=== PATIENT | female | born 1995 | race Caucasian/White ===

== ENCOUNTER 2019-08-17 11:17 | Outpatient (CLI) | payer MEDICAID, SELFPAY ==
--- NOTE | 2019-08-17 | US_ITS ---
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 Single intrauterine gestation in Cephalic presentation. Cervix is Closed and normal length. Cervical length is 4.6 cm. Normal amount of amniotic fluid surrounds the fetus. Placenta: Anterior, no previa or abruption. Placenta grade 0 Heart: 138 BPM. Four chambers are identified. Anatomy: Intracranial structures and spine are normal. kidneys, stomach and urinary bladd er are unremarkable. Abdominal wall, three-vessel cord and cord insertion site are normal. 4 extremities are present. profile: Limited due to position of the fetus. Gender: Male. Male. measurements: BPD = 4.9 cm = 20w6d HC = 18.0 cm = 20w3d AC = 14.8 cm = 20w1d FL = 3.3 cm = 20w3d EFW: 344 g., 69th %. Measurements are internally concordant. AGA by ultrasound: 20 weeks 3 days ROSANGELA by ultrasound: 01/01/2020 US/US OB >= 14 weeks fetus [id number] IMPRESSION: 1. Single intrauterine gestation of 20 weeks 3 days with an EDC of 01/01/2020. 2. Unremarkable screening survey of anatomy. profile limited due to position.
== END 2019-08-17 11:18 | disposition home or self-care (01) ==
PROVIDERS: Visit Provider Family Medicine
DX: Z01.89 Encounter for other specified special examinations (principal)

== ENCOUNTER 2019-12-27 19:30 | Inpatient (IN) | payer MEDICAID, SELFPAY ==
[2019-12-27 20:25] LABS: Basophils # 0.1 10^3/uL (0.0-0.1); Basophils % 0.3 %; Eosinophils # 0.1 10^3/uL (0.0-0.8); Eosinophils % 0.9 %; Hematocrit 27.5 % (37.0-47.0); Lymphocytes # 1.6 10^3/uL (0.8-4.8); Lymphocytes % 10.4 %; Mean Corpuscular HGB Conc 29.1 g/dL (30.0-36.0); Mean Corpuscular Hemoglobin 22.4 pg (28.0-34.0); Mean Platelet Volume 11.2 fL (7.4-10.4); Monocytes # 1.1 10^3/uL (0.2-0.9); Monocytes % 7.6 %; Neutrophils # 11.77 10^3/uL (1.8-7.7); Neutrophils % 78.2 %; Nucleated Red Blood Cells % 0 %; Platelet Count 273 10^3/cmm (130-400); Red Blood Count 3.57 10^6/uL (4.1-5.3); Red Cell Distribution Width 14.5 % (12.1-15.1); White Blood Count 15.1 10^3/uL (4.0-10.0)
[2019-12-27 20:41] VITALS: BMI 30.2
[2019-12-27 21:25] VITALS: BP 131/77; PULSE 105
[2019-12-27 21:55] VITALS: BP 124/74; PULSE 101
[2019-12-27] MEDS: miSOPROStol 100 mcg tablet 25 MCG SUBLINGUAL (22:13)
[2019-12-27 23:42] VITALS: RESP 16
[2019-12-27] MEDS: fentaNYL 50 mcg/mL INJ 2mL IVP (23:42)
[2019-12-27] MEDS: ondansetron 2 mg/ML SDV 2 mL 4 MG IVP (23:47)
[2019-12-28] VITALS (39 sets, daily range): BP systolic 0–165; BP diastolic 0–97; PULSE 71–130; RESP 18; TEMP 36.8–36.9; O2SAT 98–100
[2019-12-28] MEDS: lactated ringers 1,000 ML 999 ML IV ×2 (01:13)
--- NOTE | 2019-12-28 01:13 | ANES.PREANE2 ---
Pre-Anesthetic Assessment Pre-Anesthetic Assessment: Height/Weight: Pulse Resp BP Pulse Ox 120 H 16 118/69 100 12/28/19 01:10 12/27/19 23:42 12/28/19 01:10 12/28/19 01:08 Preop Diagnosis: SROM, labor pain Proposed Procedure: Labor Lumbar Epidural Was Beta Jac taken within 24 hours: N/A Last intake: 1800 12/26 Social: Social History: No alcohol and No tobacco Exam: Pre-Anes Outpt Exam: alert, oriented x 3, clear to auscultation bilaterally and regular rate & rhythm Airway: Submandibular: WNL Cervical ROM: WNL MP: 2 Dentition: Full History/ROS: No significant history except as noted and No significant complaints Pulmonary: Pulmonary: Asthma (exercise) CV/HEM: CV/HEM: None reported : : None reported Hepatic: Hepatic: None reported GI: GI: None reported Metabolic: Metabolic: None reported Musc/skel: Musc/skel: None reported Neuropsych: Neuropsych: None reported Anesthetic Plan: ASA status: 2 Anesthesia: General and Regional (specify below) (epidural) Meds/Allergies Current Medications: Current Medications Generic Name Dose Route Start Last Admin Trade Name Freq PRN Reason Stop Dose Admin Fentanyl 25 - 100 mcg 12/27/19 21:37 12/27/19 23:42 Sublimaze IVP 25 mcg Q1H PRN Administration SEVERE PAIN Lactated Ringer's 1,000 mls @ 999 m ls/hr 12/27/19 20:15 12/28/19 00:00 Lactated Ringers IV 999 mls/hr .Q1H1M PRN Administration BLEEDING Ondansetron HCl 4 mg 12/27/19 20:15 12/27/19 23:47 Zofran IVP 4 mg Q4H PRN Administration NAUSEA AND VOMITI NG Data Anesthesia CBC & Chem 7: 12/27/19 19:55 Other Labs: Laboratory Results - last 48 hr 12/27/19 19:55 WBC 15.1 H RBC 3.57 L Hgb 8.0 L Hct 27.5 L MCV 77.0 L MCH 22.4 L MCHC 29.1 L RDW 14.5 Plt Count 273 MPV 11.2 H Neut % (Auto) 78.2 Lymph % (Auto) 10.4 [place] % (Auto) 7.6 Eos % (Auto) 0.9 Baso % (Auto) 0.3 Neut # (Auto) 11.77 H Lymph # (Auto) 1.6 [place] # (Auto) 1.1 H Eos # (Auto) 0.1 Baso # (Auto) 0.1 Nucleated RBC % (auto) 0 Nucleated RBCs # 0.0 Cardiac Studies: No Data to Display Anesthesia Procedures Epidural: Time Out Performed: Yes Consents Signed: Procedure Consent Consent: from patient, risks and benefits reviewed and patient agrees to proceed Lumbar Level: L3-L4 Epidural position: sitting Epidural procedure: sterile prep of area, 1% lidocaine to numb the area (5), 18 g needle, negative for paresthesia passed, neg for paresthesia, test dose given, 1.5% xylocaine 1:200k epi (5), 0.2% Ropivacaine bolus ml (5), placed PCEA (5cc q10min x 3), no systemic response, sterile dressing applied, L.U.D. no apparent complications and 0.2% Ropiavacaine @ mls/hr (12) Additional Comments: Called to OB for epidural placement, pt evaluated and assessed for placement and explained procedure. Labs reviewed. Pt agrees to proceed. placed to 5cm in space and tolerated well. Bolused with epidural pump and VSS throughout per nursing chart. Last BP 127/74 Pain much improved.
[2019-12-28] MEDS: fentaNYL 50 mcg/mL INJ 2mL IVP (01:14)
[2019-12-28] MEDS: oxytocin 30 UNIT/500 ML BAG 600 UNIT IV (03:05)
--- NOTE | 2019-12-28 03:12 | P.PCNOB_ITS ---
Delivery Note: Date of delivery: December 28, 2019 Pre-Delivery Course: The patient is a 24-year-old 2 para 1-0-0-1 with an estimated gestational age of 39 weeks who presented to the hospital with spontaneous rupture membranes. Her spontaneous rupture of membranes occurred about 6 hours prior to delivery. She was given Cytotec 25 mcg x 1 sublingual. She then progressed to complete without difficulty. She is GBS negative. Her glucose screen was negative. Her blood type is O+. Otherwise there are no other abnormal labs. Delivery: DELIVERY: The patient progressed to complete without difficulty. She delivered a male with a weight of 7 pounds 13 ounces with Apgars of 9, 9. The baby was delivered from the BRYANT position. The baby's mouth and nose were suctioned at the site of the perineum. The baby was then completely delivered and placed on the mother's abdomen. The cord was then clamped and cut. There was no nuchal cord. There was no meconium. The placenta and 3 vessel cord were delivered intact shortly thereafter. The perineum and vaginal vault were carefully examined. No lacerations were noted. Both the mother and the baby were in stable condition. A&P Assessment and plan (1) 39 weeks gestation of : The patient is doing very well. I anticipate she will have a routine hospital stay. Status: Acute Coding Level of Care Code Acute Artillery Maintenance Supervisor for Chg Fwd Diagnoses 39 weeks gestation of Z3A.39
[2019-12-28] MEDS: docusate sodium 100 mg Capsule PO ×2 (08:49→21:38)
[2019-12-28] MEDS: prenatal vitamin Capsule 1 CAP PO (08:49)
[2019-12-28 15:22] LABS: Hemoglobin 7.4 g/dL (11.5-15.3); Mean Corpuscular HGB Conc 28.5 g/dL (30.0-36.0); Mean Corpuscular Hemoglobin 22.1 pg (28.0-34.0); Mean Corpuscular Volume 77.6 fL (81-99); Mean Platelet Volume 11.4 fL (7.4-10.4); Platelet Count 276 10^3/cmm (130-400); Red Blood Count 3.35 10^6/uL (4.1-5.3); Red Cell Distribution Width 14.5 % (12.1-15.1); White Blood Count 16.5 10^3/uL (4.0-10.0)
[2019-12-29 04:00] VITALS: BP 108/71; PULSE 71; RESP 16; TEMP 36.6; O2SAT 98
[2019-12-29] MEDS: docusate sodium 100 mg Capsule PO ×2 (10:07→22:31)
[2019-12-29] MEDS: prenatal vitamin Capsule 1 CAP PO (10:07)
[2019-12-29 10:11] VITALS: BP 124/84; PULSE 87; RESP 18; TEMP 36.7; O2SAT 99
--- NOTE | 2019-12-29 10:11 | PM.OBGYPN ---
DIGITAL MARKETING ASSOCIATE Subjective Subjective: Interval history: The patient is doing well. Her bleeding has been within normal limits. They are well controlled. She was breast-feeding well until we elected to have the baby not breast-feed anymore. There have been no concerns. Labor: Station: +1 Amniotic Membrane Status: Ruptured Monitor Mode: External Contraction Pattern: Regular Status: Category l Vitals/I&O/Wt Last Vital Signs Temp 97.8 F 12/29/19 04:00 Pulse 71 12/29/19 04:00 Resp 16 12/29/19 04:00 BP 108/71 12/29/19 04:00 Pulse Ox 98 12/29/19 04:00 12/28/19 12/29/19 12/29/19 22:59 06:59 14:59 Intake Total 100 / 985 Balance 100 / 985 Weight last 48 hrs Weight 187 lb Physical Exam Narrative: EXAM NARRATIVE: The patient is alert. She appears comfortable. Her heart has a regular rate and rhythm with no murmurs appreciated. Lungs are clear to auscultation bilaterally. Her fundus is firm and below the umbilicus. Data : 12/28/19 15:03 A&P Assessment and plan (1) 39 weeks gestation of : Anticipate routine care. The patient will need to continue to stay inpatient because she needs to stay with her baby and we would be unable to get her the medication she needs because of the restrictions placed due to COVID-19. Status: Acute (2) Spontaneous vaginal delivery: Status: Acute Attestations Medical Necessity Statement*: Anticipate the patient will be discharged tomorrow if her baby does well. Coding Level of Care Code Acute Room Service Food Service Attendant for Chg Fwd Diagnoses 39 weeks gestation of Z3A.39 Spontaneous vaginal delivery O80
[2019-12-29 16:00] VITALS: BP 110/71; PULSE 98; RESP 18; TEMP 37.2; O2SAT 99
[2019-12-29 22:00] VITALS: BP 128/85; PULSE 95; RESP 18; TEMP 36.8
[2019-12-30 04:23] VITALS: BP 117/75; PULSE 99; RESP 18; TEMP 36.8
[2019-12-30 06:08] VITALS: BP 108/64; PULSE 73; RESP 18; TEMP 36.5
[2019-12-30 08:00] VITALS: BP 129/81; PULSE 105; RESP 18; TEMP 36.8
[2019-12-30] MEDS: docusate sodium 100 mg Capsule PO (08:31)
[2019-12-30] MEDS: prenatal vitamin Capsule 1 CAP PO (08:31)
--- NOTE | 2019-12-30 10:33 | P.DS_ITS ---
Discharge Providers NEWSPAPER PEDDLER Date of Admission: 12/27/19 19:30 Date of Discharge: 12/30/19 Attending Provider at Admission: Kulwant De Dios MD Attending Provider at Discharge: Kulwant De Dios MD Diagnoses at Discharge Discharge Diagnosis (1) 39 weeks gestation of : Status: Acute (2) Spontaneous vaginal delivery: Status: Acute Reason for Visit Reason for Visit: contractions Hospital Course Hospital Course: The patient presented to the hospital with spontaneous ru pture of membranes. She was placed on Cytotec. She progressed to complete and had an unremarkable spontaneous vaginal delivery. She had no complications during her labor. She did not have a fever. Her white count was mildly elevated at 15.1 and she did have anemia of 8.0. Her course was also unremarkable. Her bleeding was scant. She breast-fed well. She had no complications during her hospital stay. Her infant did have problems with tachypnea. He also had a positive blood culture. So he will be staying in the hospital and she will be rooming in with him for the next 4 to 5 days. Information Peripartum Data: Infant Delivery Method: Vaginal Physical Exam Narrative: EXAM NARRATIVE: The patient is alert. She appears comfortable. Her heart has a regular rate and rhythm with no murmurs appreciated. Lungs are clear to auscultation bilaterally. Her fundus is firm and below the umbilicus. Discharge Data Addt'l Data from Hospital Stay: On the 16th the white blood count was 15.1 with a hemoglobin of 8.0 and a platelet count of 273 On the 17th her white blood count was 16.5 with a hemoglobin of 7.4 and a platelet count of 276 Vitals: Last Vital Signs Temp 98.2 F 12/30/19 08:00 Pulse 105 H 12/30/19 08:00 Resp 18 12/30/19 08:00 BP 129/81 12/30/19 08:00 Pulse Ox 99 12/29/19 16:00 Discharge Plan Discharge Patient Disposition: Home, Self-Care Condition: Stable Prescriptions: New ibuprofen 800 mg Tablet 800 mg PO TID Qty: 30 RF: 0 ferrous sulfate 325 mg (65 mg iron) tablet 325 mg PO DAILY Qty: 90 RF: 0 Continued 28 mg iron- 800 mcg Tablet 1 tab PO DAILY RF: 0 Discharge Orders: Discharge Order (Routine); Ordered 12/30/19 Ordered By: Kulwant De Dios Referrals: Kulwant De Dios MD [Physician] - 6 Weeks Discharge Diet: Usual diet Discharge Activity: Limit activity as instructed Patient Instructions: Your Baby (GEN), Expression, Collection and Storage of Breastmilk (GEN), How to Hold and Breastfeed Your Baby (GEN), and Nipple Soreness (GEN), Breast Fullness Versus Breast Engorgement (GEN), How to Increase Your Milk Supply (GEN), and Your Diet (GEN), OB Discharge Report, OB Food/Drug Interaction Guide, OB Vaginal Deliveries Discharge Attestations NEWSPAPER PEDDLER Time Spent in Discharge Care*: less than 30 min Coding Level of Care Code Acute Locomotive Operator Helper for Chg Fwd Diagnoses 39 weeks gestation of Z3A.39 Spontaneous vaginal delivery O80
[2019-12-30 12:40] VITALS: BP 115/74; PULSE 83; RESP 18; TEMP 36.4
[2019-12-30] MEDS: measles,mumps,rubella pf Vial (w/diluent) 0.5 ML SUBCUT (12:52)
== END 2019-12-30 12:54 | disposition home or self-care (01) | DRG 807 ==
LOC: OPOB 12-28 03:01 → OBGYN 12-28 03:01
PROVIDERS: Admitting Provider Family Medicine; Visit Provider Family Medicine
DX: O42.92 Full-term premature rupture of membranes, unspecified as to length of time between rupture and onset of labor (principal); Z37.0 Single live birth; Z3A.39 39 weeks gestation of pregnancy
CPT/HCPCS: 12345; 36415; 59025; 59409; 83986; 85025; 85027; 90707; 96372; 96375; 98960; 99211; J2405; J2795; J3010

== ENCOUNTER 2022-03-03 22:10 | Emergency (ER) | payer OTHER, MEDICAID, SELFPAY ==
[2022-03-03 22:25] VITALS: BP 128/91; PULSE 109; RESP 18; TEMP 36.8; O2SAT 100; BMI 26.6
[2022-03-04 01:31] LABS: Basophils % 0.2 %; Eosinophils # 0.2 10^3/uL (0.0-0.8); Eosinophils % 1.8 %; Hematocrit 36.1 % (37.0-47.0); Hemoglobin 11.9 g/dL (11.5-15.3); Lymphocytes # 1.6 10^3/uL (0.8-4.8); Lymphocytes % 17.1 %; Mean Corpuscular Hemoglobin 27.5 pg (28.0-34.0); Mean Corpuscular Volume 83.4 fl (81-99); Mean Platelet Volume 11.5 fL (7.4-10.4); Monocytes # 0.6 10^3/uL (0.2-0.9); Monocytes % 5.9 %; Neutrophils % 74.6 %; Nucleated Red Blood Cells % 0 %; Platelet Count 237 10^3/cmm (130-400); Red Blood Count 4.33 10^6/uL (4.1-5.3); Red Cell Distribution Width 16.2 % (12.1-15.1); White Blood Count 9.3 10^3/uL (4.0-10.0)
[2022-03-04 01:33] LABS: Add Urine Microscopic? NO; Charge for UA Resulting for Rev
[2022-03-04] MEDS: ondansetron 2 mg/ML SDV 2 mL 4 MG IVP (01:34)
[2022-03-04] MEDS: lactated ringers 1,000 ML 999 ML IV (01:34)
[2022-03-04 01:59] LABS: Alanine Aminotransferase 15 U/L (0-33); Albumin Level 4.5 g/dL (3.5-5.2); Alkaline Phosphatase 61 U/L (35-105); Anion Gap 14.6 (5-19); Aspartate Amino Transferase 14 U/L (0-32); Calcium 9.6 mg/dL (8.5-10.5); Carbon Dioxide 24 mmol/L (22-29); Chloride 99 mmol/L (98-107); Globulin 2.9 g/dL (1.3-4.6); Glomerular Filtration Rate 119.9 mL/min (90-130); Glucose 98 mg/dL (65-115); Potassium 3.6 mmol/L (3.5-5.1); Total Bilirubin 0.3 mg/dL (0.15-1.2); Total Protein 7.4 g/dL (6.6-8.7)
[2022-03-04 02:09] LABS: Bilirubin Urine Neg (Negative); Blood Urine Neg (Negative); Glucose Urine UA Norm (Normal); Ketones Urine Negative (Negative); Leukocyte Esterase Urine Negative (Negative); Nitrate Urine Negative (Negative); Protein Urine Neg (Negative); Specific Gravity, Urine 1.015 (1.005-1.030); Urine Appearance Clear (CLEAR); Urine Color Yellow (Yellow); Urobilinogen Urine Norm (Negative); pH Urine 7 (5-7)
--- NOTE | 2022-03-04 02:34 | ED_ITS ---
HPI - Nausea/Vomiting/Diarrhea General: Chief complaint: Nausea/Vomiting/Diarrhea Stated complaint: nausea/vomiting blood, back pain 13 wks Time Seen by Provider: 03/04/22 01:20 History of Present Illness: 26-year-old female presents with vomiting. Patient also complains of some mild back pain. Patient reports that she is 13 weeks and is concerned about the baby. Patient reports that she been having difficulty with vomiting throughout her since about 6 weeks. Patient noticed a little bit what she feels with blood in her vomit. Patient wanted to be evaluated to make sure that her baby is okay. Patient is Of any abdominal pain. No reports of fevers, chills, diarrhea. Associated nausea: Yes Associated symtoms: Reports nausea; Denies change in vision, chest pain, dizziness, dysuria, headache(s) or palpitations Review of Systems Const: Denies: fever(s) or chills Eyes: Denies: change in vision or blurry vision ENMT: Denies: throat pain or ear or mastoid pain Card: Denies: chest pain or palpitations Resp: Denies: dyspnea or productive cough GI: Reports: nausea, vomiting and other (Please see HPI); Denies: abdominal pain : Denies: flank pain or dysuria Musc: Denies: neck pain or back pain Skin/Breast: Denies: rash or pruritus Neuro: Denies: headache(s) or dizziness [facility] ED Female Reproductive History: Date of last menstrual period: 12/04/21 Physical Exam Const: COMMON NORMALS: no acute distress, patient oriented x3, healthy appea ring and alert HENMT: COMMON NORMALS: normocephalic and hearing grossly normal bilaterally HEAD & SCALP: normocephalic Eye: COMMON NORMALS: Equal, round and reactive pupils present and EOMs intact bilaterally PUPIL: Yes Equal, round and reactive pupils present Resp: COMMON NORMALS: normal respiratory effort, No use of accessory muscles and clear to auscultation bilaterally AUSCULTATION: clear to auscultation bilaterally Cardio: COMMON NORMALS: regular rhythm RATE: tachycardic RHYTHM: regular rhythm GI: COMMON NORMALS: Soft to palpation and non-tender PALPATION: Yes Soft to palpation Extremity: COMMON NORMALS: normal to inspection and full ROM Neuro: COMMON NORMALS: patient oriented x3, CN's II-XII intact bilaterally, moves all extremities and no focal motor deficits SENSORIUM/ORIENTATION: Yes alert Psych: COMMON NORMALS: mental status grossly normal, Normal thought process present, cooperative and normal affect THOUGHT PROCESS: Normal thought process present Skin: COMMON NORMALS: no rashes or lesions noted GENERAL SKIN EXAM: no rashes or lesions noted Course Vital Signs: Vital signs: Vital Signs Temperature 98.3 F 03/03/22 22:25 Pulse Rate 109 H 03/03/22 22:25 Respiratory Rate 18 03/03/22 22:25 Blood Pressure 128/91 03/03/22 22:25 Pulse Oximetry 100 03/03/22 22:25 Oxygen Delivery Me thod 03/03/22 22:25 MDM - Nausea/Vomiting/Diarrhea Medical Decision Making Patient with no vomiting while in the ER. I suspect she has a lot of irritation of her esophagus and stomach from her hyperemesis gravidarum and probably does have some mild blood-tinged from that. She is not having any significant active vomiting with red blood. Patient was concerned about her baby, I performed a bedside ultrasound which showed good movement heart rate in the 140s. I recommended she start Pepcid. She should follow-up with her OB and primary care provider for further management of her vomiting throughout her . Patient heart rate improved with IV fluid and patient was discharged home Lab Data : 03/04/22 01:12 03/04/22 01:12 Laboratory Results WBC 9.3 10^3/uL (4.0-10.0) 03/04/22 01:12 RBC 4.33 10^6/uL (4.1-5.3) 03/04/22 01:12 Hgb 11.9 g/dL (11.5-15.3) 03/04/22 01:12 Hct 36.1 % (37.0-47.0) L 03/04/22 01:12 MCV 83.4 fl (81-99) 03/04/22 01:12 MCH 27.5 pg (28.0-34.0) L 03/04/22 01:12 MCHC 33.0 g/dL (30.0-36.0) 03/04/22 01:12 RDW 16.2 % (12.1-15.1) H 03/04/22 01:12 Plt Count 237 10^3/cmm (130-400) 03/04/22 01:12 MPV 11.5 fL (7.4-10.4) H 03/04/22 01:12 Neut % (Auto) 74.6 % 03/04/22 01:12 Lymph % (Auto) 17.1 % 03/04/22 01:12 [place] % (Auto) 5.9 % 03/04/22 01:12 Eos % (Auto) 1.8 % 03/04/22 01:12 Baso % (Auto) 0.2 % 03/04/22 01:12 Neut # (Auto) 6.90 10^3/uL (1.8-7.7) 03/04/22 01:12 Lymph # (Auto) 1.6 10^3/uL (0.8-4.8) 03/04/22 01:12 [place] # (Auto) 0.6 10^3/uL (0.2-0.9) 03/04/22 01:12 Eos # (Auto) 0.2 10^3/uL (0.0-0.8) 03/04/22 01:12 Baso # (Auto) 0.0 10^3/uL (0.0-0.1) 03/04/22 01:12 Nucleated RBC % (auto) 0 % 03/04/22 01:12 Nucleated RBCs # 0.0 /100WBC 03/04/22 01:12 Potassium 3.6 mmol/L (3.5-5.1) 03/04/22 01:12 Chloride 99 mmol/L (98-107) 03/04/22 01:12 Carbon Dioxide 24 mmol/L (22-29) 03/04/22 01:12 Anion Gap 14.6 (5-19) 03/04/22 01:12 Creatinine 0.6 mg/dL (0.5-0.9) 03/04/22 01:12 GFR Calculation 119.9 mL/min (90-130) 03/04/22 01:12 Glucose 98 mg/dL (65-115) 03/04/22 01:12 Calcium 9.6 mg/dL (8.5-10.5) 03/04/22 01:12 Total Bilirubin 0.3 mg/dL (0.15-1.2) 03/04/22 01:12 AST 14 U/L (0-32) 03/04/22 01:12 ALT 15 U/L (0-33) 03/04/22 01:12 Alkaline Phosphatase 61 U/L (35-105) 03/04/22 01:12 Total Protein 7.4 g/dL (6.6-8.7) 03/04/22 01:12 Albumin 4.5 g/dL (3.5-5.2) 03/04/22 01:12 Globulin 2.9 g/dL (1.3-4.6) 03/04/22 01:12 Urine Color Yellow (Yellow) 03/04/22 01:12 Urine Appearance Clear (CLEAR) 03/04/22 01:12 Urine pH 7 (5-7) 03/04/22 01:12 Ur Specific [place] 1.015 (1.005-1.030) 03/04/22 01:12 Urine Protein Neg (Negative) 03/04/22 01:12 Urine Glucose (UA) Norm (Normal) 03/04/22 01:12 Urine Ketones Negative (Negative) 03/04/22 01:12 Urine Blood Neg (Negative) 03/04/22 01:12 Urine Nitrate Negative (Negative) 03/04/22 01:12 Urine Bilirubin Neg (Negative) 03/04/22 01:12 Urine Urobilinogen Norm mg/dL (Negative) 03/04/22 01:12 Ur Leukocyte Esterase Negative (Negative) 03/04/22 01:12 Discharge Plan Discharge Condition: Stable Prescriptions: No Action 28 mg iron- 800 mcg Tablet 1 tab PO DAILY ibuprofen 800 mg Tablet 800 mg PO TID Qty: 30 0RF ferrous sulfate 325 mg (65 mg iron) tablet 325 mg PO DAILY Qty: 90 0RF Coding Level of Care Code ED Marketing Pr Intern for Chg Earline
[2022-03-04] MEDS: famotidine 20 mg/2 mL INJ IVP (02:35)
[2022-03-04 02:53] VITALS: BP 128/91; PULSE 109; RESP 18; TEMP 36.8; O2SAT 100
[2022-03-04 03:16] LABS: Blood Urea Nitrogen 4 mg/dL (6-20); Osmolality Calculated 275 mOsm/kg (285-295); Sodium 134 mmol/L (136-145)
== END 2022-03-04 02:50 | disposition home or self-care (01) ==
PROVIDERS: Emergency Provider Student in an Organized Health Care Education/Training Program
DX: O26.891 Other specified pregnancy related conditions, first trimester (principal); K92.0 Hematemesis; Z3A.13 13 weeks gestation of pregnancy
CPT/HCPCS: 80053; 81003; 85025; 96361; 96374; 96375; 99284; J2405; J3490

== ENCOUNTER 2022-09-01 09:33 | Outpatient (CLI) | payer OTHER, MEDICAID, SELFPAY ==
[2022-09-01 09:40] VITALS: BMI 28.7
[2022-09-01 09:46] VITALS: BP 120/88; PULSE 98
[2022-09-01 10:04] VITALS: BP 116/80; PULSE 84
[2022-09-01 10:28] VITALS: BP 116/80; PULSE 84; RESP 18; TEMP 36.2
== END 2022-09-01 10:30 | disposition home or self-care (01) ==
LOC: OPOB 09:34 → OBGYN 09:45
PROVIDERS: Visit Provider Family Medicine
DX: O26.899 Other specified pregnancy related conditions, unspecified trimester (principal); Z3A.00 Weeks of gestation of pregnancy not specified; R10.9 Unspecified abdominal pain; N89.8 Other specified noninflammatory disorders of vagina
CPT/HCPCS: 59025; 99211

== ENCOUNTER 2022-09-06 17:00 | Inpatient (IN) | payer OTHER, MEDICAID, SELFPAY ==
[2022-09-06] VITALS (45 sets, daily range): BP systolic 117–156; BP diastolic 60–113; PULSE 71–153; RESP 18; TEMP 36.6–37.2; O2SAT 98–100; BMI 28.7
[2022-09-06 16:55] LABS: Basophils % 0.3 %; Eosinophils # 0.1 10^3/uL (0.0-0.8); Hematocrit 34.1 % (37.0-47.0); Lymphocytes # 1.9 10^3/uL (0.8-4.8); Lymphocytes % 13.7 %; Mean Corpuscular HGB Conc 32.3 g/dL (30.0-36.0); Mean Corpuscular Hemoglobin 26.1 pg (28.0-34.0); Monocytes % 7.2 %; Neutrophils # 10.46 10^3/uL (1.8-7.7); Neutrophils % 76.8 %; Nucleated Red Blood Cells % 0 %; Platelet Count 275 10^3/cmm (130-400); Red Blood Count 4.21 10^6/uL (4.1-5.3); Red Cell Distribution Width 16.2 % (12.1-15.1); White Blood Count 13.6 10^3/uL (4.0-10.0)
[2022-09-06] MEDS: miSOPROStol 100 mcg tablet 25 MCG VAGINAL (17:14)
[2022-09-06] MEDS: lactated ringers 1,000 ML 999 ML IV ×2 (18:48→20:02)
--- NOTE | 2022-09-06 19:58 | ANES.PREANE2 ---
Documented by User: Consuelo Carter CRNA 09/06/22 20:01 Pre-Anesthetic Assessment Height/Weight: Height 1.68 m Weight 80.739 kg Temp Pulse BP O2 Del Method 97.9 F 89 134/81 09/06/22 16:45 09/06/22 18:37 09/06/22 18:37 09/06/22 16:30 Preop Diagnosis: SROM, labor pain LUIS ALFREDO Familial anesthetic complications: None Was Beta Jac taken within 24 hours: N/A Was Clonidine taken within 24 hours: N/A Social No alcohol and No tobacco Exam alert, oriented x 3, clear to auscultation bilaterally and regular rate & rhythm Medications/Allergies Home Medications Medication Instructions Recorded Confirmed Last Taken Type ferrous sulfate 325 mg (65 mg 325 mg PO DAILY #90 tabs 12/30/19 09/05/22 20:00 Rx iron) tablet ibuprofen 800 mg tablet 800 mg PO TID #30 tabs 12/30/19 Unknown Rx vit no.95-ferrous 1 tab PO DAILY 12/30/19 12/30/19 09/05/22 20:00 History fumarate 28 mg-folic acid 800 mcg tablet () Allergies Allergy/AdvReac Type Severity Reaction Status Date / Time Penicillins Allergy Unknown Unknown Verified 12/30/19 08:28 Current Medications Generic Name Dose Route Start Last Admin Trade Name Freq PRN Reason Stop Dose Admin Lactated Ringer's 1,000 mls @ 999 mls/hr 09/06/22 18:38 09/06/22 18:48 Lactated Ringers IV 999 mls/hr .Q1H1M PRN Administration See label comments Misoprostol 25 mcg 09/06/22 16:45 09/06/22 17:14 Misoprostol 100 Mcg Tablet VAGINAL 09/06/22 20:46 25 mcg Q4H MOE Administration PFSH Anesthesia Female Reproductive History : 4 Data Anesthesia 09/06/22 14:40 Short CBC 09/06/22 Range/Units 14:40 WBC 13.6 H (4.0-10.0) 10^3/uL Hgb 11.0 L (11.5-15.3) g/dL Hct 34.1 L (37.0-47.0) % MCV 81.0 (81-99) fl Plt Count 275 (130-400) 10^3/cmm Neut % (Auto) 76.8 % Neut # (Auto) 10.46 H (1.8-7.7) 10^3/uL Cardiac Studies: No Data to Display Documented by User: Zulema Mcclain 09/06/22 20:35 Pre-Anesthetic Assessment Airway Submandibular: within normal limits Cervical ROM: within normal limits Mallampati: Class II Dentition: full History/ROS No significant history except as noted Pulmonary None reported CV/HEM Anemia None reported Hepatic None reported GI Gastroesophageal Reflux Disease nausea Metabolic None reported Musc/skel None reported Neuropsych None reported Anesthetic Plan ASA status: 2 Anesthesia: Anesthesia Evaluation and MAC Risk of > 500 ml blood loss (7ml/kg in children): No Medications/Allergies Home Medications Medication Instructions Recorded Confirmed Last Taken Type ferrous sulfate 325 mg (65 mg 325 mg PO DAILY #90 tabs 12/30/19 09/05/22 20:00 Rx iron) tablet ibuprofen 800 mg tablet 800 mg PO TID #30 tabs 12/30/19 Unknown Rx vit no.95-ferrous 1 tab PO DAILY 12/30/19 12/30/19 09/05/22 20:00 History fumarate 28 mg-folic acid 800 mcg tablet () Allergies Allergy/AdvReac Type Severity Reaction Status Date / Time Penicillins Allergy Unknown Unknown Verified 12/30/19 08:28 Data Anesthesia 09/06/22 14:40 Cardiac Studies: No Data to Display Anesthesia Procedures Epidural Time Out Performed: Yes Consents Signed: Procedure Consent Consent: requested by attending/covering physician, from patient, risks and benefits reviewed and patient agrees to proceed Lumbar Level: L4-L5 Epidural position: sitting Epidural procedure: sterile prep of area, 1% lidocaine to numb the area, 18 g needle, negative for paresthesia passed, test dose given, 1.5% xylocaine 1:200k epi, placed PCEA (13 ml/hr), no systemic response, sterile dressing applied and L.U.D. no apparent complications
[2022-09-06] MEDS: oxytocin 30 UNIT/500 ML BAG 600 UNIT IV (21:37)
--- NOTE | 2022-09-06 21:50 | PM.OPHPUD ---
Labor & Delivery H&P Update Date of Procedure: September 06, 2022 Date H&P Performed: 09/06/22 Changes to previous documentation: No changes. The patient was seen in my office earlier today Admission Diagnosis: 26-year-old 4 para 2-0-1-2 at 39 weeks and 3 days presenting for induction Primary indication for procedure: Elective. Social circumstances Planned procedure: Induction at 39-week multigravida female Other information: The patient is an otherwise healthy 39-week female who presented to the hospital for induction. She was having some contractions but was not feeling them upon arrival to the hospital. She was placed on Cytotec 25 mcg per vagina x1. An amniotomy was performed. Her had been unremarkable from a medical standpoint. Her labs were as follows. Her blood type is O+. Her antibody screen is negative. She passed her 1 hour glucose screen. She is GBS negative. She is rubella immune. The remainder of her infectious disease profile was within normal limits. Her has been notable for being left by her during her third trimester. Related Problem List Diagnoses (1) 39 weeks gestation of : A&P Assessment and plan (1) 39 weeks gestation of : I anticipate routine labor and spontaneous vaginal delivery. Status: Resolved
--- NOTE | 2022-09-06 21:54 | P.PCNOB_ITS ---
Delivery Note: Date of delivery: September 06, 2022 Pre-delivery diagnoses: 26-year-old 4 para 2-0-1-2 at 39 weeks estimated gestational age Post- delivery diagnoses: Status post spontaneous vaginal delivery Procedure: Spontaneous vaginal delivery Delivering Physician: Kulwant De Dios Estimated blood loss (mL): 100 Pre-Delivery Course: The patient presented to the hospital having contractions every 2 to 3 minutes. Her labor was augmented with Cytotec. An amniotomy was performed. An epidural was placed. She progressed to complete without difficulty. Delivery: DELIVERY: The patient progressed to complete without difficulty. She delivered a male with a weight of 7 pounds 15 ounces with Apgars of 8, 9. The baby was delivered from the BRYANT position and placed on the mother's abdomen. The cord was then clamped and cut 1 minute after delivery. There was no nuchal cord. The cord was shorter than average. There was no meconium. The placenta and 3 vessel cord were delivered intact shortly thereafter. The perineum and vaginal vault were carefully examined. No lacerations were noted. Both the mother and the baby were in stable condition. Post-Delivery Status: Good Coding Level of Care Code Acute Code for Chg Fwd
[2022-09-07] VITALS (10 sets, daily range): BP systolic 102–127; BP diastolic 58–72; PULSE 69–88; RESP 16–18; TEMP 36.6–36.7; O2SAT 98–99
[2022-09-07] MEDS: benzocaine-menthol 78 gm Canister 1 SPRAY TOPICAL (00:59)
[2022-09-07] MEDS: HYDROcodone-acetaminophen 5-325 mg Tablet PO ×2 (00:59→06:08)
[2022-09-07] MEDS: lanolin oint 7 gm 1 APPLIC TOPICAL (00:59)
--- NOTE | 2022-09-07 07:35 | ANE.PACU2 ---
Inpatient post-anesthesia follow up: Airway intact: Yes Vital signs: Temperature 98.0 F Pulse Rate 73 Respiratory Rate 18 Blood Pressure 111/63 Pulse Oximetry 98 Oxygen Delivery Me thod Room Air Oxygen Flow Rate Fraction of Inspir ed Oxygen Hydration adequate: Yes Nausea and vomiting: No Pain level: 2 Mental status: Baseline
[2022-09-07] MEDS: docusate sodium 100 mg Capsule PO ×2 (08:49→17:40)
[2022-09-07] MEDS: ibuprofen 800 mg tablet PO ×3 (08:49→22:11)
[2022-09-07] MEDS: prenatal vitamin Capsule 1 CAP PO (08:50)
[2022-09-07 10:07] LABS: Hematocrit 30.7 % (37.0-47.0); Hemoglobin 9.7 g/dL (11.5-15.3); Mean Corpuscular HGB Conc 31.6 g/dL (30.0-36.0); Mean Corpuscular Hemoglobin 25.8 pg (28.0-34.0); Mean Corpuscular Volume 81.6 fl (81-99); Mean Platelet Volume 11.4 fL (7.4-10.4); Platelet Count 246 10^3/cmm (130-400); Red Blood Count 3.76 10^6/uL (4.1-5.3); Red Cell Distribution Width 16.1 % (12.1-15.1); White Blood Count 14.3 10^3/uL (4.0-10.0)
--- NOTE | 2022-09-07 17:10 | P.DS_ITS ---
Discharge Providers TECHNICAL REPORT WRITER Date of Admission: 09/06/22 17:00 Date of Discharge: 09/07/22 Attending Provider at Admission: Kulwant De Dios MD Attending Provider at Discharge: Kulwant De Dios MD Diagnoses at Discharge Discharge Diagnosis (1) 39 weeks gestation of : Status: Resolved Reason for Visit Reason for Visit: induction Hospital Course Hospital Course The patient presented to the hospital having contractions every 5 minutes. Cytotec 25 mcg was used to augment her labor. Amniotomy was performed. An epidural was placed. She progressed to complete without difficulty. Her delivery was unremarkable. Her course was also unremarkable. Her bleeding was within normal limits. Her pain was well controlled. She breast- fed well. There were no concerns. Information Peripartum Data: Infant Delivery Method: Vaginal Physical Exam Narrative: The patient is alert. She appears comfortable. Her heart has a regular rate and rhythm with no murmurs appreciated. Lungs are clear to auscultation bilaterally. Her fundus is firm and below the umbilicus. Urinary Catheter Management: [place]: Cath Placed During This Visit: yes, but has since been removed by the nurse Reason for Continuing Indwelling Catheter: Decision to DC Catheter Urinary Catheter Date of Insertion: 09/06/22 Urinary Catheter Time of Insertion: 20:55 Date Urinary Catheter Removed: 09/06/22 Time Urinary Catheter Discontinued: 21:30 Discharge Data Studies Completed and Pending Laboratory Results WBC 14.3 10^3/uL (4.0-10.0) H 09/07/22 09:40 RBC 3.76 10^6/uL (4.1-5.3) L 09/07/22 09:40 Hgb 9.7 g/dL (11.5-15.3) L 09/07/22 09:40 Hct 30.7 % (37.0-47.0) L 09/07/22 09:40 MCV 81.6 fl (81-99) 09/07/22 09:40 MCH 25.8 pg (28.0-34.0) L 09/07/22 09:40 MCHC 31.6 g/dL (30.0-36.0) 09/07/22 09:40 RDW 16.1 % (12.1-15.1) H 09/07/22 09:40 Plt Count 246 10^3/cmm (130-400) 03/28/23 09:40 MPV 11.4 fL (7.4-10.4) H 09/07/22 09:40 Neut % (Auto) 76.8 % 09/06/22 14:40 Lymph % (Auto) 13.7 % 09/06/22 14:40 [place] % (Auto) 7.2 % 09/06/22 14:40 Eos % (Auto) 1.0 % 09/06/22 14:40 Baso % (Auto) 0.3 % 09/06/22 14:40 Neut # (Auto) 10.46 10^3/uL (1.8-7.7) H 09/06/22 14:40 Lymph # (Auto) 1.9 10^3/uL (0.8-4.8) 09/06/22 14:40 [place] # (Auto) 1.0 10^3/uL (0.2-0.9) H 09/06/22 14:40 Eos # (Auto) 0.1 10^3/uL (0.0-0.8) 09/06/22 14:40 Baso # (Auto) 0.0 10^3/uL (0.0-0.1) 09/06/22 14:40 Nucleated RBC % (auto) 0 % 09/06/22 14:40 Nucleated RBCs # 0.0 /100WBC 09/06/22 14:40 Vitals Last Vital Signs Temp 98.1 F 09/07/22 15:58 Pulse 70 09/07/22 15:58 Resp 16 09/07/22 15:58 BP 116/64 09/07/22 15:58 Pulse Ox 99 09/07/22 15:58 O2 Del Method 09/07/22 15:58 Discharge Plan Discharge Patient Disposition: Home Condition: Stable Prescriptions: New ibuprofen 800 mg Tablet 800 mg PO TID Qty: 45 0RF Continued PNV cmb#[id number]-ferrous fumarate-FA [] 28 mg iron- 800 mcg Tablet 1 tab PO DAILY ferrous sulfate 325 mg (65 mg iron) tablet 325 mg PO DAILY Qty: 90 0RF Discontinued ibuprofen 800 mg Tablet 800 mg PO TID Qty: 30 0RF Discharge Orders: Discharge Order (Routine); Ordered 09/07/22 Ordered By: Kulwant De Dios Referrals: Kulwant De Dios MD [Physician] - 6 Weeks Discharge Diet: Usual diet Discharge Activity: Limit activity as instructed Patient Instructions: Depression (DC), Opioid Safety (DC), Preeclampsia and Eclampsia After Delivery (GEN), Hemorrhage (DC), OB Discharge Report, OB Food/Drug Interaction Guide, OB Care at Home, Opioid Safety, Abnormal Bleeding Discharge Attestations TECHNICAL REPORT WRITER Time Spent in Discharge Care*: less than 30 min Coding Level of Care Code Acute Code for Chg Fwd Diagnoses 39 weeks gestation of Z3A.39
== END 2022-09-07 22:15 | disposition home or self-care (01) | DRG 807 ==
LOC: OPOB 18:24 → OBGYN 23:11
PROVIDERS: Admitting Provider Family Medicine; Visit Provider Family Medicine
DX: O80 Encounter for full-term uncomplicated delivery (principal); Z37.0 Single live birth; Z3A.39 39 weeks gestation of pregnancy
CPT/HCPCS: 12345; 36415; 51702; 59025; 59409; 85025; 85027; 99211; J2590; J2795; J7120

== ENCOUNTER 2023-05-12 09:38 | Outpatient (CLI) | payer MEDICAID, SELFPAY ==
--- NOTE | 2023-05-12 | US_ITS ---
WS: [id number] EARLY OBSTETRICAL ULTRASOUND (<14 WEEKS). HISTORY: UNSPECIFIED ABDOMINAL PAIN COMPARISON: None available. Transvaginal imaging is submitted. There is thickening of the endometrium. There is a small amount of fluid along the endometrial canal. Cannot confirm gestational sac at this time. There is no po le. No cardiac activity. LEFT ovary measures 3.3 x 3.1 x 2.3 cm. Small follicle associated with the LEFT ovary measures 2.4 x 1.4 cm. This may be a corpus luteum cyst. No additional mass within the LEFT adnexa. RIGHT ovary measures 1.7 x 2.7 x 1.0 cm. Small follicles. No adnexal mass. There is a small amount of free fluid in the cul-de-sac. IMPRESSION: 1. Cannot confirm intrauterine gestation. There is a tiny amount of fluid along the endometrium whic h does not appear to represent a gestational sac at this time. There is no pole or cardiac acti vity. Recommend transvaginal pelvic ultrasound evaluation in 1 week. 2. No extraovarian adnexal masses or suspicion for ectopic. There is a corpus luteum cyst within the LEFT ovary. Intraovarian ectopic pregnancies are unusual. 3. Recommend continued serial follow-up for beta-hCG levels and ultrasound evaluations to confirm vi able intrauterine gestation. Cannot exclude ectopic by imaging as intrauterine gestation is not identified.
== END 2023-05-12 09:39 | disposition home or self-care (01) ==
PROVIDERS: Visit Provider Family Medicine
DX: R10.9 Unspecified abdominal pain (principal); N83.12 Corpus luteum cyst of left ovary

== ENCOUNTER 2023-11-18 08:13 | Oncology outpatient (recurring) (ONCR) | payer MEDICAID, SELFPAY ==
[2023-11-18 08:46] VITALS: BP 111/73; PULSE 83; RESP 16; TEMP 36.5; O2SAT 100
[2023-11-18] MEDS: iron sucrose 500 MG in sodium chloride 0.9% 250 ML 78 MG IV (09:06)
[2023-11-18] MEDS: diphenhydrAMINE 50 mg/mL SDV 1mL 25 MG IVP (12:10)
--- NOTE | 2023-11-18 13:36 | PC.NURSE ---
Pt in infusion room for venofer 500mg infusion. Pt received full dose, completed at approx. 1200. Pt notified nurse that her left arm (with IV) was tingling. Pt then stated her ribs were starting to hurt. NS fluids started. Pt then stated her legs were starting to tingle and and left arm had significant swelling. Benadryl 25mg IVP administered per protocol at approx. 1210. Fluids stopped due to pt complaining of feeling the IV fluids in her hand. Pt then began to vomit. Rapid called at approx 1230 and was taken to ED for evaluation. 22g IV left in pts left AC. Purse was sent with pt, phone was sent with Domingo from security immediately after pt went to ED.
--- NOTE | 2023-12-01 10:50 | PC.NURSE ---
Called [facility] office for further orders on pts venofer infusions. Pt had previous reaction to 500mg venofer. [facility] states pt needs to come in for lab work on tuesday and they will call pt and notify. Pt will not receive next iron infusion. DEBRA
== END 2023-12-11 23:59 | disposition home or self-care (01) ==
PROVIDERS: Visit Provider Family Medicine
DX: D50.9 Iron deficiency anemia, unspecified (principal)
CPT/HCPCS: 96365; 96366; 96375; J1200; J1756; J7050

== ENCOUNTER 2023-11-18 12:44 | Emergency (ER) | payer MEDICAID, SELFPAY ==
[2023-11-18 12:44] VITALS: BP 120/93; PULSE 93; RESP 17; TEMP 36.4; O2SAT 100
--- NOTE | 2023-11-18 12:49 | ECG_ITS ---
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 Measurements Intervals [place] Rate: 82 P: 66 IN: 120 QRS: 55 QRSD: 79 T: 62 QT: 377 QTc: 442 Interpretive Statements SINUS RHYTHM POSSIBLE RIGHT VENTRICULAR CONDUCTION DELAY [RSR (QR) IN V1/V2] No previous ECG available for comparison Electronically Signed On 11-18-2023 13:03:13 CDT by Aldo Roberto M.D. [email or web address]
--- NOTE | 2023-11-18 12:55 | ED_ITS ---
HPI - Nausea/Vomiting/Diarrhea 2 General: Chief complaint: Nausea/Vomiting/Diarrhea Stated complaint: rapid oncology Time Seen by Provider: 11/18/23 12:46 Source: patient Mode of arrival: ambulatory Limitations: no limitations History of Present Illness: 28-year-old female is [facility] she was receiving a iron infusion and had a reaction to it states she had swelling in the hand on the same side started feel lightheaded felt like she is going to pass out and vomited. She is given Benadryl over there she is an IV bolus started. This is her first time have an iron transfusion. She denies any shortness of breath. Associated nausea: Yes Associated symtoms: Reports nausea; Denies chest pain, dysuria or headache(s) Review of Systems 2 Const: Denies: fever(s), chills, body aches or change in appetite ENMT: Denies: throat pain or dental pain Card: Denies: chest pain Resp: Denies: dyspnea GI: Reports: nausea and vomiting; Denies: abdominal pain or diarrhea : Denies: dysuria Musc: Denies: neck pain or back pain Skin/Breast: Denies: rash Neuro: Denies: headache(s) Physical Exam 2 Const: COMMON NORMALS: no acute distress, patient oriented x3 and healthy appearing HENMT: COMMON NORMALS: normocephalic and atraumatic HEAD & SCALP: n ormocephalic and atraumatic Eye: COMMON NORMALS: Equal, round and reactive pupils present and EOMs intact bilaterally PUPIL: Yes Equal, round and reactive pupils present Neck/C-Spine: COMMON NORMALS: full ROM and supple Chest: COMMONS NORMALS: normal inspection of the chest and normal palpation of entire chest wall Resp: COMMON NORMALS: normal respiratory effort, No retractions, No use of accessory muscles and clear to auscultation bilaterally AUSCULTATION: clear to auscultation bilaterally Cardio: COMMON NORMALS: regular rate, regular rhythm and No murmurs present (Cardio) RATE: regular rate RHYTHM: regular rhythm GI: COMMON NORMALS: Normal to inspection, nondistended, normoactive bowel sounds present, Soft to palpation, non-tender and no masses PALPATION: Yes Soft to palpation Extremity: COMMON NORMALS: normal to inspection and full ROM Neuro: COMMON NORMALS: patient oriented x3, moves all extremities and no focal motor deficits Psych: COMMON NORMALS: mental status grossly normal, Normal thought process present and cooperative THOUGHT PROCESS: Normal thought process present Skin: COMMON NORMALS: no rashes or lesions noted and no wounds GENERAL SKIN EXAM: no rashes or lesions noted Course 2 Vital Signs: Vital signs: Vital Signs Temperature 97.5 F L 11/18/23 12:44 Pulse Rate 80 11/18/23 13:30 Respiratory Rate 15 11/18/23 13:30 Blood Pressure 139/94 11/18/23 13:30 Pulse Oximetry 99 11/18/23 13:30 Oxygen Delivery Me thod Room Air 11/18/23 13:30 MDM - Nausea/Vomiting/Diarrhea Medical Decision Making Patient presents here with likely adverse reaction to iron infusion she is feeling improved here she does have some joint swelling she is no signs of rhabdo feel she is stable for discharge informed if she has any worsening symptoms she is to return she understands agrees to plan Medical Records I reviewed the patient's medical records. Lab Data I reviewed the patient's lab results. 11/18/23 13:14 11/18/23 13:14 Laboratory Results WBC 4.77 10^3/uL (3.29-11.43) 11/18/23 13:14 RBC 5.28 10^6/uL (3.85-5.65) 11/18/23 13:14 Hgb 10.00 g/dL (11.27-16.99) L 11/18/23 13:14 Hct 36.7 % (36-47) 11/18/23 13:14 MCV 69.5 fl (85-98) L 11/18/23 13:14 MCH 18.9 pg (27-33) L 11/18/23 13:14 MCHC 27.2 g/dL (30-55) L 11/18/23 13:14 RDW 19.9 % (12.1-15.1) H 11/18/23 13:14 Plt Count 561 10^3/cmm (157-399) H 11/18/23 13:14 MPV TNP 11/18/23 13:14 Neut % (Auto) 59.8 % 11/18/23 13:14 Lymph % (Auto) 31.2 % 11/18/23 13:14 [place] % (Auto) 6.1 % 11/18/23 13:14 Eos % (Auto) 1.9 % 11/18/23 13:14 Baso % (Auto) 0.6 % 11/18/23 13:14 Neut # (Auto) 2.85 10^3/uL (1.8-7.7) 11/18/23 13:14 Lymph # (Auto) 1.5 10^3/uL (0.8-4.8) 11/18/23 13:14 [place] # (Auto) 0.3 10^3/uL (0.2-0.9) 11/18/23 13:14 Eos # (Auto) 0.1 10^3/uL (0.0-0.8) 11/18/23 13:14 Baso # (Auto) 0.0 10^3/uL (0.0-0.1) 11/18/23 13:14 Nucleated RBC % (auto) 0 % 11/18/23 13:14 Nucleated RBCs # 0.0 /100WBC 11/18/23 13:14 Sodium 138 mmol/L (136-145) 11/18/23 13:14 Potassium 3.7 mmol/L (3.5-5.1) 11/18/23 13:14 Chloride 104 mmol/L (98-107) 11/18/23 13:14 Carbon Dioxide 21 mmol/L (22-29) L 11/18/23 13:14 Anion Gap 16.7 (5-19) 11/18/23 13:14 BUN 8 mg/dL (6-20) 11/18/23 13:14 Creatinine 0.7 mg/dL (0.5-0.9) 11/18/23 13:14 GFR Calculation 98.9 mL/min (90-130) 11/18/23 13:14 Glucose 111 mg/dL (65-115) 11/18/23 13:14 Calculated Osmolality 285 mOsm/kg (285-295) 11/18/23 13:14 Calcium 8.8 mg/dL (8.5-10.5) 11/18/23 13:14 Total Bilirubin 0.3 mg/dL (0.15-1.2) 11/18/23 13:14 AST 14 U/L (0-32) 11/18/23 13:14 ALT 13 U/L (0-33) 11/18/23 13:14 Alkaline Phosphatase 65 U/L (35-105) 11/18/23 13:14 Creatine Kinase 45 U/L (26-192) 11/18/23 13:14 Total Protein 7.4 g/dL (6.6-8.7) 11/18/23 13:14 Albumin 4.7 g/dL (3.5-5.2) 11/18/23 13:14 Globulin 2.7 g/dL (1.3-4.6) 11/18/23 13:14 HCG, Qual Negative (Negative) 11/18/23 13:14 No radiology studies performed this visit EKG Data EKG 1: I personally reviewed and interpreted this EKG as follows: EKG interpretation date: 11/18/23 EKG interpretation time: 12:49 Interpretation: nsr hr [address] or t wave abnormalities qrs 79 qtc 416 Discharge Plan Discharge Patient Disposition: Home Clinical Impression: Medication reaction Condition: Stable Prescriptions: New ondansetron 4 mg tablet,disintegrating 4 mg PO Q6H PRN (Reason: nausea and vomiting) Qty: 14 0RF Naprosyn 500 mg tablet 500 mg PO BID PRN (Reason: pain) Qty: 20 0RF No Action ferrous sulfate 325 mg (65 mg iron) tablet 325 mg PO DAILY Qty: 90 0RF fluoxetine 10 mg tablet 10 mg PO DAILY Vitamin C 500 mg Tablet 500 mg PO DAILY Discharge Orders: Discharge ED (Routine); Ordered 11/18/23 Ordered By: Darrell Nash Discharge Diet: Advance as tolerated Discharge Activity: Resume usual activity Patient Instructions: General Allergic Reaction (ED) Coding Level of Care Code 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
[2023-11-18] MEDS: ondansetron 2 mg/ML SDV 2 mL 4 MG IVP (13:08)
[2023-11-18] MEDS: sodium chloride 0.9% 1,000 ML 999 ML IV (13:08)
[2023-11-18 13:10] VITALS: BP 123/79; PULSE 80; RESP 15; O2SAT 100
[2023-11-18 13:23] LABS: Basophils % 0.6 %; Eosinophils # 0.1 10^3/uL (0.0-0.8); Eosinophils % 1.9 %; Hematocrit 36.7 % (36-47); Lymphocytes # 1.5 10^3/uL (0.8-4.8); Lymphocytes % 31.2 %; Mean Corpuscular HGB Conc 27.2 g/dL (30-55); Mean Corpuscular Hemoglobin 18.9 pg (27-33); Mean Corpuscular Volume 69.5 fl (85-98); Monocytes # 0.3 10^3/uL (0.2-0.9); Monocytes % 6.1 %; Neutrophils # 2.85 10^3/uL (1.8-7.7); Neutrophils % 59.8 %; Nucleated Red Blood Cells % 0 %; Platelet Count 561 10^3/cmm (157-399); Red Blood Count 5.28 10^6/uL (3.85-5.65); Red Cell Distribution Width 19.9 % (12.1-15.1); White Blood Count 4.77 10^3/uL (3.29-11.43)
[2023-11-18 13:30] VITALS: BP 139/94; PULSE 80; RESP 15; O2SAT 99
[2023-11-18 13:38] LABS: HCG, Serum Qual Negative (Negative)
[2023-11-18 13:40] LABS: Alanine Aminotransferase 13 U/L (0-33); Albumin Level 4.7 g/dL (3.5-5.2); Alkaline Phosphatase 65 U/L (35-105); Anion Gap 16.7 (5-19); Aspartate Amino Transferase 14 U/L (0-32); Blood Urea Nitrogen 8 mg/dL (6-20); Calcium 8.8 mg/dL (8.5-10.5); Carbon Dioxide 21 mmol/L (22-29); Chloride 104 mmol/L (98-107); Creatinine Clr Calc Pharmacy 110.7617; Globulin 2.7 g/dL (1.3-4.6); Glomerular Filtration Rate 98.9 mL/min (90-130); Glucose 111 mg/dL (65-115); Osmolality Calculated 285 mOsm/kg (285-295); Potassium 3.7 mmol/L (3.5-5.1); Sodium 138 mmol/L (136-145); Total Bilirubin 0.3 mg/dL (0.15-1.2); Total Protein 7.4 g/dL (6.6-8.7)
[2023-11-18] MEDS: methylPREDNISolone sod succ 125 mg/2 mL INJ IVP (14:18)
[2023-11-18] MEDS: ketorolac 30 mg/mL INJ 15 MG IVP (14:21)
[2023-11-18 14:34] LABS: Slide Review Slide Review Perform
[2023-11-18 14:45] LABS: Creatine Phosphokinase 45 U/L (26-192)
[2023-11-18 15:46] VITALS: PULSE 83; RESP 17; O2SAT 97
== END 2023-11-18 15:46 | disposition home or self-care (01) ==
PROVIDERS: Emergency Provider Emergency Medicine
DX: R11.10 Vomiting, unspecified (principal); T45.4X5A Adverse effect of iron and its compounds, initial encounter; R42 Dizziness and giddiness
CPT/HCPCS: 36415; 80053; 82550; 84703; 85025; 93005; 96361; 96374; 96375; 99284; J1885; J2405; J2919; J7030

== ENCOUNTER 2024-07-28 16:07 | Emergency (ER) | payer OTHER, MEDICAID, SELFPAY ==
[2024-07-28 16:12] VITALS: BP 142/97; PULSE 85; RESP 16; TEMP 36.6; O2SAT 99
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
[2024-07-28 17:42] VITALS: BP 136/91; PULSE 88; O2SAT 99
== END 2024-07-28 17:44 | disposition home or self-care (01) ==
PROVIDERS: Emergency Provider Emergency Medicine
DX: S01.01XA Laceration without foreign body of scalp, initial encounter (principal); V89.2XXA Person injured in unspecified motor-vehicle accident, traffic, initial encounter
CPT/HCPCS: 12001; 70450; 73562; 99284